=== PATIENT | male | born 2005 | race Caucasian/White ===

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

== ENCOUNTER 2023-02-16 06:19 | Emergency (ER) | payer BC ==
[2023-02-16 06:32] VITALS: BP 113/7; PULSE 76; RESP 16; TEMP 98.9
[2023-02-16] MEDS ORDERED: BACITRACIN OINT 1 EACH PACKET TOPICAL ONE (06:48)
--- NOTE | 2023-02-16 06:57 | ED ---
Skin/Abscess/FB HPI - General Chief complaint: Skin/Abscess/Foreign Body Stated complaint: Right knee blisters Time Seen by Provider: 02/16/23 06:40 Source: patient, family (mom states has been putting mupirocin on it), RN notes reviewed, old records reviewed Mode of arrival: ambulatory Limitations: no limitations - History of Present Illness Initial comments: Nontoxic-appearing 17-year-old male presents ambulatory with his mother complaining of sun burn with blister to his right knee. Mom states she has been putting mupirocin ointment on it. Blister is not broken. No other blistering noted. Patient does have good range of motion. Tetanus is up-to-date. No other medical history. MD complaint: other (sunburn right knee) -: days(s) Tetanus Up to Date: yes Location: RLE (knee) Severity scale (1-10): 3 Quality: constant Consistency: constant Associated symptoms: denies other symptoms Treatments Prior to Arrival: other (mupirocin) - Related Data Home Medications Medication Instructions Recorded Confirmed No Known Home Medications 03/31/16 03/31/16 Allergies Allergy/AdvReac Type Severity Reaction Status Date / Time No Known Allergies Allergy Verified 02/16/23 06:32 Review of Systems ROS Statement: Those systems with pertinent positive or pertinent negative responses have been documented in the HPI. ROS Other: All systems not noted in ROS Statement are negative. Past Medical History Additional Past Medical History / Comment(s): chiari malformation History of Any Multi-Drug Resistant Organisms: None Reported Additional Past Surgical History / Comment(s): chiari malformation repair Past Psychological History: No Psychological Hx Reported Smoking Status: Vaper Past Alcohol Use History: None Reported Past Drug Use History: None Reported General Exam Limitations: no limitations General appearance: alert, in no apparent distress Head exam: Present: atraumatic Eye exam: Present: normal appearance. Absent: scleral icterus, conjunctival injection, periorbital swelling, periorbital tenderness Neck exam: Present: full ROM. Absent: meningismus Respiratory exam: Absent: respiratory distress, accessory muscle use Cardiovascular Exam: Present: regular rate Neurological exam: Present: alert, oriented X3 Psychiatric exam: Present: normal affect, normal mood Skin exam: Present: warm, dry, normal color, other (blister right knee 2cm x 1cm, intact, errythema both knees and thighs from sunburn) Course Vital Signs 02/16/23 06:30 Temperature 98.9 F Pulse Rate 76 Respiratory 16 Rate Blood Pressure 113/7 O2 Sat by Pulse 100 Oximetry Medical Decision Making - Medical Decision Making Was pt. sent in by a medical professional or institution ([facility], STOCK WORKER, urgent care, hospital, or correction...) When possible be specific @ -No Did you speak to anyone other than the patient for history (EMS, parent, family, police, friend...)? What history was obtained from this source @ -Mom states was using mupirocin topically Did you review nursing and triage notes (agree or disagree)? Why? @ -I reviewed and agree with nursing and triage notes Were old charts reviewed (outside hosp., previous admission, EMS record, old EKG, old radiological studies, urgent care reports/EKG's, correction records)? Report findings @ -No old charts were reviewed Differential Diagnosis (chest pain, altered mental status, abdominal pain women, abdominal pain men, vaginal bleeding, weakness, fever, dyspnea, syncope, headache, dizziness, GI bleed, back pain, seizure, CVA, palpatations, mental health, musculoskeletal)? @ -Sunburn, abscess, cellulitis, this is not an all inclusive list EKG interpreted by me (3pts min.). @ -n/a X-rays interpreted by me (1pt min.). @ -None done CT interpreted by me (1pt min.). @ -None done U/S interpreted by me (1pt. min.). @ -None done What testing was considered but not performed or refused? (CT, X-rays, U/S, labs)? Why? @ -None What meds were considered but not given or refused? Why? @ -None Did you discuss the management of the patient with other professionals (professionals i.e. [facility], STOCK WORKER, lab, RT, psych nurse, elementary school social worker, fashion supervisor, teacher, security officers and guards, mattress spring encaser)? Give summary @ -No Was smoking cessation discussed for >3mins.? @ -No Was critical care preformed (if so, how long)? @ -No Were there social determinants of health that impacted care today? How? (Homelessness, low income, unemployed, alcoholism, drug addiction, transportation, low edu. Level, literacy, decrease access to med. care, residential, rehab)? @ -No Was there de-escalation of care discussed even if they declined (Discuss DNR or withdrawal of care, Hospice)? DNR status @ -No What co-morbidities impacted this encounter? (DM, HTN, Smoking, COPD, CAD, Cancer, CVA, ARF, Chemo, Hep., AIDS, mental health diagnosis, sleep apnea, morbid obesity)? @ -None Was patient admitted / discharged? Hospital course, mention meds given and route, prescriptions, significant lab abnormalities, going to OR and other pertinent info. @ -Discharged Nontoxic-appearing 17-year-old male presents ambulatory with his mother complaining of sun burn with blister to his right knee. Mom states she has been putting mupirocin ointment on it. Blister is not broken. No other blistering noted. Patient does have good range of motion. Tetanus is up-to-date. No other medical history. Patient was directed to use aloe vera or bacitracin. If blister breaks cut off the skin and cover with bacitracin or continue with mupirocin Directed always use sunscreen when outdoors. Follow-up with primary care doctor. Watch for signs of infection and return with any new or concerning symptoms. Mom and patient are agreeable to this plan of care. Case discussed with Dr. Jaffe. Undiagnosed new problem with uncertain prognosis? @ -No Drug Therapy requiring intensive monitoring for toxicity (Heparin, Nitro, Insulin, Cardizem)? @ -No Were any procedures done? @ -No Diagnosis/symptom? @ -Sunburn, second degree right knee/thigh Acute, or Chronic, or Acute on Chronic? @ -Acute Uncomplicated (without systemic symptoms) or Complicated (systemic symptoms)? @ -Uncomplicate Side effects of treatment? @ -No Exacerbation, Progression, or Severe Exacerbation? @ -No Poses a threat to life or bodily function? How? (Chest pain, [place], [place], pneumonia, PE, COPD, DKA, ARF, appy, cholecystitis, CVA, Diverticulitis, Homicidal, Suicidal, threat to staff... and all critical care pts) @ -No Disposition Clinical Impression: Sunburn, blistering Disposition: HOME SELF-CARE Condition: Good Instructions (If sedation given, give patient instructions): Sunburn (ED), Second-Degree Burn (ED) Additional Instructions: Keep wound covered and out of the sun. Wear sunscreen every day. If the blister breaks, cut away all skin to prevent infection and cover with antibiotic ointment. Increase your fluid intake. Follow-up with the primary care doctor within the next week. Return if any new or concerning symptoms or signs of infection. Is patient prescribed a controlled substance at d/c from ED?: No Referrals: Asher Johnson MD [Primary Care Provider] - 1-2 days Time of Disposition: 06:57
== END 2023-02-16 07:15 | disposition home or self-care (01) ==
LOC: EC 06:19
DX: T24.121A Burn of first degree of right knee, initial encounter (principal); T31.0 Burns involving less than 10% of body surface; L55.0 Sunburn of first degree; F17.290 Nicotine dependence, other tobacco product, uncomplicated; X08.8XXA Exposure to other specified smoke, fire and flames, initial encounter
CPT/HCPCS: 99283